=== PATIENT | female | born 1970 | race Caucasian/White ===

== ENCOUNTER → 2017-10-20 | Day surgery (SDC) | payer MEDICAID ==
[~2017-10-20] MED LIST: Lactated Ringer's 1,000 ML IV ONE; Midazolam 2 MG/2 ML VIAL ONE; Morphine 4 MG/ML VIAL IVP PRN; Propofol 10 mg/ml Inj (20 ML) ONE; Triamcinolone Acetonide 40 mg/mL Inj ONE; ceFAZolin IV 1 gm in Dextrose 1 GM/50 ML BAG IVPB ONE
[2017-10-20] MEDS: Bupivacaine HCl 0.5% PF (10 ml) Inj ONE ×2 (08:15→08:18)
[2017-10-20] MEDS: Lidocaine 1% Inj (20ml) ONE ×2 (08:15→08:19)
--- NOTE | 2017-10-20 08:47 | PCM.SURG1 ---
Surgeon's Initial Post Op Note - Surgeon's Notes Surgeon: Dr. Pierre Ferrari, DPM [employer] Service Technician: Kulwinder Shaw, PGY1, Bull Perry, MS4 Type of Anesthesia: IV Sedation, Local Anesthesia Administered By: Dr. Ramires Pre-Operative Diagnosis: Painful soft tissue mass, dorsal left foot Operative Findings: See dictation report. M- 3-0 vicryl, 4-0 nylon. I- preoperative: 10 cc 1:1 0.5% marcaine plain, 1% lidocaine plain. intra- operative: 10 cc 1% lidocaine plain. post-operative: 4 cc 1:1 decadron 4 mg/mL , Kenalog, 10 cc 0.25% marcaine plain Post-Operative Diagnosis: Hypertrophic, painful extensor digitorum brevis muscle belly and entrapment of Extensor digitorum longus tendon, left foot Operation Performed: Exploration of dorsal left foot with release of hypertrophic extensor digitorum brevis muscle belly and extensor digitorum longus tendon, left foot Specimen/Specimens Removed: None Estimated Blood Loss: EBL {In ML}: 0 Blood Products Given: N/A Drains Used: No Drains Post-Op Condition: Good Date of Surgery/Procedure: 10/20/17 Time of Surgery/Procedure: 08:49
[2017-10-20 09:58] VITALS: RESP 15
[2017-10-20 10:28] VITALS: O2SAT 99
[2017-10-20 11:38] VITALS: BP 134/80; PULSE 77; TEMP 98
--- NOTE | 2017-10-23 07:36 | OP ---
PROCEDURE DATE: 10/20/2017 PREOPERATIVE DIAGNOSIS: Painful soft tissue mass, dorsal left foot. POSTOPERATIVE DIAGNOSIS: Hypertrophic painful extensor digitorum brevis muscle belly and entrapment of extensor digitorum longus tendon, left foot. PROCEDURE: Exploration of the dorsal left foot with release of hypertrophic extensor digitorum brevis muscle belly and extensor digitorum longus tendon. SURGEON: Pierre Stroud DPM DESILVERIZER: Kulwinder Shaw, PGY-1; Bull Perry, MS-4 TYPE OF ANESTHESIA: IV sedation with local. ANESTHESIA ADMINISTERED BY: Dr. Ramires INDICATIONS: The patient is a 46-year-old female with the above diagnosis. The patient has exhausted all conservative treatment at this time and now opts for surgical intervention. The patient signed the consent after careful explanation of risks, benefits, complications, and alternatives for surgical procedure. No guarantees were given nor implied. N.p.o. status was confirmed prior to taking the patient to the OR. PREPARATION: The patient was brought into the operating room and placed on the operating room table in a supine position. Time-out was performed for identification of the correct patient and procedure. After induction of IV sedation, patient received a total of 10 mL of 1:1 mixture of 0.5% Marcaine plain and 1% lidocaine plain in a local block fashion to the dorsal left foot just proximal to where the soft tissue mass could be palpated. The left lower extremity was then prepped and draped in normal sterile manner and the procedure began. An ankle tourniquet was used during the procedure and was inflated to 250 mmHg for the duration of the procedure. DESCRIPTION OF PROCEDURE: Attention was then turned to the dorsal aspect of the patient's left foot where a palpable mass could be felt where the patient described her area of maximum pain. 10 mL of 1% lidocaine plain was injected circumferentially around the soft tissue mass site. Using a fresh #15 blade, dissection was made down through the layers of the skin and then Metzenbaum scissors were used for blunt dissection through the fascia overlying the extensor digitorum brevis muscle belly. The muscle belly was noted to be hypertrophic and no sign of ganglion or synovial cyst was noted at this time. The most lateral branch of the extensor digitorum longus tendon was also identified and noted to be entrapped within the soft tissue. It was believed by the surgeon at this time that the source of the patient's pain was not from a cyst, as had been previously anticipated, but was in fact due to; (1) a hypertrophied extensor digitorum brevis muscle belly that was entrapped within its fascial sheath, and (2) an entrapped extensor digitorum longus tendon. Both were freed with blunt dissection using the Metzenbaum scissors, and the distal digits were put through range of motion to ensure that the extensor digitorum longus tendon had free and absolute range of motion was attained. After further exploration of the surgical site yielded no signs of any abnormal growths or soft tissue masses, the surgical site was closed using 3-0 Vicryl deep sutures and 4-0 Nylon sutures superficially. After closure, 4 mL of a 1:1 mixture of Decadron 4 mg/mL and Kenalog were injected into the surgical area, as well as 10 mL of 0.25% Marcaine plain. The surgical site was dressed with Xeroform, dry sterile dressing, and an Gabo bandage, and the procedure was completed. POSTOPERATIVE CONDITION: The patient tolerated the anesthesia and procedure well and was escorted to the recovery room with vital signs stable and neurovascular status intact in the left lower extremity. The patient is to remain weightbearing as tolerated to the left foot in a surgical shoe, and is to keep dressings clean, dry and intact at all times. Patient will follow up with Dr. Stroud in his private office after discharge from the hospital later today. Kulwinder Shaw DPM Pierre Stroud DPM RAJANI
== END | disposition home or self-care (01) ==
LOC: C.SDS 06:49
PROVIDERS: ATTEND Podiatrist Foot & Ankle Surgery
DX: M67.472 Ganglion, left ankle and foot (principal)
CPT/HCPCS: 28234; J0690; J1100; J2250; J2704; J3010; J3301; J7120